=== PATIENT | male | born 1960 | race Caucasian/White ===

== ENCOUNTER 2021-06-12 18:03 | Emergency (ER) | payer OTHER ==
[~2021-06-12] VITALS: Ht 182.9 cm; Wt 108.9 kg
[~2021-06-12 18:03] MED LIST: LORA5TAB9
[2021-06-12 18:07] VITALS: BP 130/78
--- NOTE | 2021-06-12 18:35 | NUR ---
Patient refused all labs, md notified and aware.
--- NOTE | 2021-06-12 18:53 | NUR ---
Patient does not wish to proceed with medical care recommended by Dr. Marino. Patient given information related to possible complications, up to and including , which could occur as a result of leaving the hospital at this time. Patient verbalizes understanding of risks involved due to leaving against medical advice. Patient has signed AMA form. Called taxi for patient, in no distress. Ambulatory with steady gait.
== END 2021-06-12 18:53 | disposition left against medical advice (07) ==
LOC: ER 18:06
DX: R55 Syncope and collapse (principal); R42 Dizziness and giddiness; Z88.1 Allergy status to other antibiotic agents
CPT/HCPCS: 71045-TC